=== PATIENT | male | born 1955 | race Asian ===

== ENCOUNTER 2018-06-10 22:35 | Inpatient (IN) | payer OTHER ==
[2018-06-10 23:15] LABS: ADD MAN DIFF? NO
[2018-06-10] MEDS: PIPER-TAZO 3.375 GM IV (PMX) 100 ML IVPB (23:16)
[2018-06-10 23:17] LABS: WHITE BLOOD COUNT 15.4 10^3/ul (4.8-10.8)
[2018-06-10 23:17] LABS: BASOPHIL # 0.1 10^3/ul (0.0-0.1); BASOPHILS % 0.4 % (0.0-2.0); EOSINOPHILS # 0.2 10^3/ul (0.0-0.5); EOSINOPHILS % 1.1 % (0.0-7.0); HEMATOCRIT 43.5 % (42.0-52.0); HEMOGLOBIN 13.2 g/dl (14.0-18.0); LYMPHOCYTES # 3.1 10^3/ul (0.8-2.9); LYMPHOCYTES % 20.1 % (15.0-51.0); MEAN CORPUSCULAR HEMOGLOBIN 18.7 pg (29.0-33.0); MEAN CORPUSCULAR HGB CONC 30.3 g/dl (32.0-37.0); MEAN CORPUSCULAR VOLUME 61.7 fl (82.0-101.0); MEAN PLATELET VOLUME 8.2 fl (7.4-10.4); MONOCYTE # 0.8 10^3/ul (0.3-0.9); MONOCYTES % 5.3 % (0.0-11.0); NEUTROPHIL # 11.1 10^3/ul (1.6-7.5); NEUTROPHILS % 72.4 % (39.0-77.0); PLATELET COUNT 575 10^3/UL (140-415); RED BLOOD COUNT 7.05 10^6/ul (4.70-6.10); RED CELL DISTRIBUTION WIDTH 20.3 % (11.5-14.5)
[2018-06-10] MEDS: SODIUM CHLORIDE 0.9% 1L BAG IV* (23:17)
[2018-06-10 23:36] LABS: ALANINE AMINOTRANSFERASE 6 IU/L (13-69); ALBUMIN 4.6 g/dl (3.3-4.9); ALKALINE PHOSPHATASE 129 IU/L (42-121); ANION GAP 16 (5-13); ASPARTATE AMINO TRANSFERASE 36 IU/L (15-46); BILIRUBIN,INDIRECT 0.1 mg/dl (0-1.1); BILIRUBIN,TOTAL 0.1 mg/dl (0.2-1.3); BLOOD UREA NITROGEN 22 mg/dl (7-20); CARBON DIOXIDE 24 mmol/L (21-31); CHLORIDE 93 mmol/L (97-110); CREATININE 0.68 mg/dl (0.61-1.24); Estimated GFR > 60 mL/min (>60); GLUCOSE 350 mg/dl (70-220); INR 0.89; PROTIME 12.2 Sec (11.9-14.9); SODIUM 133 mmol/L (135-144); TOTAL PROTEIN 10.3 g/dl (6.1-8.1)
[2018-06-10 23:37] LABS: PARTIAL THROMBOPLASTIN TIME 35.2 Sec (23.0-35.0)
[2018-06-10 23:46] LABS: TROPONIN-I < 0.012 ng/ml (0.000-0.120)
[2018-06-10 23:47] LABS: POTASSIUM 5.4 mmol/L (3.5-5.1)
[2018-06-11] MEDS: SOD CHLORIDE 0.9% 100 ML (02:06)
[2018-06-11] MEDS: IOHEXOL 300MG/ML 150 ML BTL (02:06)
[2018-06-11] MEDS ORDERED: ACETAMINOPHEN 325 MG TAB PO (02:30)
[2018-06-11] MEDS ORDERED: ONDANSETRON 4 MG INJ IV ×2 (02:30→05:00)
[2018-06-11 04:51] LABS: LACTIC ACID 2.5 mmol/L (0.5-2.0)
[2018-06-11] MEDS ORDERED: NACL 0.9% 3 ML SYG IV (05:00)
[2018-06-11] MEDS ORDERED: GLUCOSE GEL 15 GRAM TUBE PO ×2 (05:00)
[2018-06-11] MEDS ORDERED: GLUCAGON 1 MG INJ IM (05:00)
[2018-06-11] MEDS ORDERED: GLUCOSE GEL 15 GRAM TUBE BUCCAL (05:00)
[2018-06-11] MEDS ORDERED: DEXTROSE 50% 50 ML SYRINGE IV ×2 (05:00)
[2018-06-11] MEDS: SOD CHLORIDE 0.9% 1,000 ML IV ×2 (05:39→15:25)
[2018-06-11] MEDS: PIPER-TAZO 3.375 GM IV (PMX) 100 ML IVPB ×3 (06:10→18:37)
[2018-06-11 06:12] LABS: ADD MAN DIFF? NO
[2018-06-11 06:22] LABS: WHITE BLOOD COUNT 12.8 10^3/ul (4.8-10.8)
[2018-06-11 06:22] LABS: BASOPHIL # 0.1 10^3/ul (0.0-0.1); BASOPHILS % 0.5 % (0.0-2.0); EOSINOPHILS # 0.3 10^3/ul (0.0-0.5); EOSINOPHILS % 2.4 % (0.0-7.0); HEMOGLOBIN 10.9 g/dl (14.0-18.0); LYMPHOCYTES # 2.5 10^3/ul (0.8-2.9); LYMPHOCYTES % 19.8 % (15.0-51.0); MEAN CORPUSCULAR HGB CONC 30.3 g/dl (32.0-37.0); MEAN CORPUSCULAR VOLUME 62.6 fl (82.0-101.0); MEAN PLATELET VOLUME 8.2 fl (7.4-10.4); MONOCYTE # 1.1 10^3/ul (0.3-0.9); MONOCYTES % 8.8 % (0.0-11.0); NEUTROPHIL # 8.7 10^3/ul (1.6-7.5); NEUTROPHILS % 67.6 % (39.0-77.0); PLATELET COUNT 442 10^3/UL (140-415); RED BLOOD COUNT 5.75 10^6/ul (4.70-6.10); RED CELL DISTRIBUTION WIDTH 19.1 % (11.5-14.5)
[2018-06-11 06:46] LABS: ALANINE AMINOTRANSFERASE 7 IU/L (13-69); ALBUMIN 3.5 g/dl (3.3-4.9); ALBUMIN/GLOBULIN RATIO 0.83; ALKALINE PHOSPHATASE 93 IU/L (42-121); ANION GAP 13 (5-13); ASPARTATE AMINO TRANSFERASE 19 IU/L (15-46); BILIRUBIN,INDIRECT 0.2 mg/dl (0-1.1); BILIRUBIN,TOTAL 0.2 mg/dl (0.2-1.3); BLOOD UREA NITROGEN 16 mg/dl (7-20); CALCIUM 8.4 mg/dl (8.4-10.2); CARBON DIOXIDE 22 mmol/L (21-31); CHLORIDE 101 mmol/L (97-110); CREATININE 0.47 mg/dl (0.61-1.24); Estimated GFR > 60 mL/min (>60); GLUCOSE 195 mg/dl (70-220); MAGNESIUM 1.9 mg/dl (1.7-2.5); POTASSIUM 4.1 mmol/L (3.5-5.1); SODIUM 136 mmol/L (135-144); TOTAL PROTEIN 7.7 g/dl (6.1-8.1)
[2018-06-11] MEDS: INSULIN ASPART [NOVOLOG] 3 ML PEN SC ×6 (08:18→21:00)
[2018-06-11] MEDS: metFORMIN 500 MG TAB PO ×2 (09:00→18:37)
[2018-06-11 09:54] LABS: HEMOGLOBIN A1C 10.6 % (0-5.9)
[2018-06-11] MEDS: ACCU-CHEK XX ×3 (10:00→19:55)
[2018-06-11] MEDS: morphine 2 MG INJ IV (11:13)
[2018-06-11 13:01] LABS: HEPATITIS B SURFACE ANTIGEN NEGATIVE (NEGATIVE)
[2018-06-11 13:30] LABS: HEPATITIS C VIRAL ANTIBODY REACTIVE (NEGATIVE)
[2018-06-11 15:18] LABS: RAPID PLASMA REAGIN NONREACTIVE (NR)
[2018-06-11] MEDS ORDERED: PENDING SANTYL ORDER FOR WOUND CARE XX (20:00)
[2018-06-11] MEDS: INSULIN GLARGINE [LANTus] (100 UNITS/ML) SYG SC (21:40)
[2018-06-11] MEDS: ACETAMINOPHEN 325 MG TAB PO (21:51)
[2018-06-12] MEDS: PIPER-TAZO 3.375 GM IV (PMX) 100 ML IVPB ×5 (00:14→21:03)
[2018-06-12] MEDS: SOD CHLORIDE 0.9% 1,000 ML IV ×3 (00:15→21:03)
[2018-06-12] MEDS ORDERED: ACCU-CHEK XX (02:00)
[2018-06-12] MEDS: ACCU-CHEK XX ×7 (02:00→21:02)
[2018-06-12] MEDS: HYDROCODONE/APAP (5/325) TAB PO ×2 (05:16→13:31)
[2018-06-12 06:28] LABS: ADD MAN DIFF? NO
[2018-06-12 06:47] LABS: BASOPHIL # 0.1 10^3/ul (0.0-0.1); BASOPHILS % 0.5 % (0.0-2.0); EOSINOPHILS # 0.4 10^3/ul (0.0-0.5); EOSINOPHILS % 4.3 % (0.0-7.0); HEMATOCRIT 31.1 % (42.0-52.0); HEMOGLOBIN 9.5 g/dl (14.0-18.0); LYMPHOCYTES # 2.6 10^3/ul (0.8-2.9); LYMPHOCYTES % 27.8 % (15.0-51.0); MEAN CORPUSCULAR HEMOGLOBIN 19.3 pg (29.0-33.0); MEAN CORPUSCULAR HGB CONC 30.5 g/dl (32.0-37.0); MEAN CORPUSCULAR VOLUME 63.1 fl (82.0-101.0); MEAN PLATELET VOLUME 8.2 fl (7.4-10.4); MONOCYTE # 0.8 10^3/ul (0.3-0.9); MONOCYTES % 8.6 % (0.0-11.0); NEUTROPHIL # 5.4 10^3/ul (1.6-7.5); NEUTROPHILS % 57.9 % (39.0-77.0); PLATELET COUNT 379 10^3/UL (140-415); RED BLOOD COUNT 4.93 10^6/ul (4.70-6.10); RED CELL DISTRIBUTION WIDTH 18.6 % (11.5-14.5)
[2018-06-12 06:47] LABS: WHITE BLOOD COUNT 9.3 10^3/ul (4.8-10.8)
[2018-06-12 06:57] LABS: INR 0.96; PROTIME 12.9 Sec (11.9-14.9)
[2018-06-12 06:58] LABS: PARTIAL THROMBOPLASTIN TIME 37.1 Sec (23.0-35.0)
[2018-06-12 07:16] LABS: ALANINE AMINOTRANSFERASE 7 IU/L (13-69); ALBUMIN 3.2 g/dl (3.3-4.9); ALBUMIN/GLOBULIN RATIO 0.84; ALKALINE PHOSPHATASE 93 IU/L (42-121); ANION GAP 9 (5-13); ASPARTATE AMINO TRANSFERASE 14 IU/L (15-46); BLOOD UREA NITROGEN 10 mg/dl (7-20); CALCIUM 8.5 mg/dl (8.4-10.2); CARBON DIOXIDE 25 mmol/L (21-31); CHLORIDE 103 mmol/L (97-110); CREATININE 0.55 mg/dl (0.61-1.24); Estimated GFR > 60 mL/min (>60); GLUCOSE 239 mg/dl (70-220); SODIUM 137 mmol/L (135-144)
[2018-06-12 07:30] LABS: MAGNESIUM 1.7 mg/dl (1.7-2.5)
[2018-06-12] MEDS: INSULIN ASPART [NOVOLOG] 3 ML PEN SC ×5 (07:59→20:48)
[2018-06-12 08:25] LABS: ERYTHROCYTE SEDIMENTATION RATE 83 mm/Hr (0-20)
[2018-06-12] MEDS: metFORMIN 500 MG TAB PO (08:44)
[2018-06-12 11:14] LABS: IRON 19 ug/dl (35-150)
[2018-06-12] MEDS: NATEGLINIDE 60 MG TAB PO ×2 (11:20→18:41)
[2018-06-12 11:23] LABS: % IRON SATURATION 7 % SAT (22-52); TOTAL IRON BINDING CAPACITY 282 ug/dl (241-421)
[2018-06-12] MEDS: FAMOTIDINE 20 MG TAB PO ×2 (11:30→20:53)
[2018-06-12] MEDS: LEVOTHYROXINE 75 MCG TAB PO (13:25)
[2018-06-12] MEDS: TERBINAFINE 250 MG TAB PO ×2 (13:31→20:53)
[2018-06-12] MEDS: metFORMIN 850 MG TAB PO (18:39)
[2018-06-12] MEDS: INSULIN GLARGINE [LANTus] (100 UNITS/ML) SYG SC (21:01)
[2018-06-13] MEDS: PIPER-TAZO 3.375 GM IV (PMX) 100 ML IVPB ×3 (00:41→11:45)
[2018-06-13] MEDS: ACCU-CHEK XX ×8 (01:06→21:28)
[2018-06-13] MEDS: LEVOTHYROXINE 75 MCG TAB PO (05:14)
[2018-06-13] MEDS: SOD CHLORIDE 0.9% 1,000 ML IV ×2 (05:52→21:28)
[2018-06-13] MEDS: NATEGLINIDE 60 MG TAB PO ×3 (07:02→17:19)
[2018-06-13] MEDS: TERBINAFINE 250 MG TAB PO ×2 (08:48→20:58)
[2018-06-13] MEDS: FAMOTIDINE 20 MG TAB PO ×2 (08:48→20:59)
[2018-06-13] MEDS: metFORMIN 850 MG TAB PO ×2 (08:49→17:19)
[2018-06-13] MEDS: INSULIN ASPART [NOVOLOG] 3 ML PEN SC ×4 (09:03→21:26)
[2018-06-13] MEDS: SODIUM HYPOCHLORITE (1/40) 1 APPLIC BTL IRR ×2 (13:00→20:59)
[2018-06-13] MEDS: HYDROCODONE/APAP (5/325) TAB PO (15:04)
[2018-06-13] MEDS: CLINDAMYCIN 900 MG/D5W (PMX) 50 ML IVPB ×2 (15:07→22:00)
[2018-06-13] MEDS: ACETAMINOPHEN 325 MG TAB PO (20:59)
[2018-06-13] MEDS: NYSTATIN 30 GM POWDER BTL TOP (20:59)
[2018-06-13] MEDS: MEROPENEM 1 GM/50ML(PMX) 50 ML IVPB (21:00)
[2018-06-13] MEDS: INSULIN GLARGINE [LANTus] (100 UNITS/ML) SYG SC (21:25)
[2018-06-14] MEDS: ACCU-CHEK XX ×8 (01:45→21:12)
[2018-06-14] MEDS: SOD CHLORIDE 0.9% 1,000 ML IV ×3 (01:54→22:51)
[2018-06-14] MEDS: LEVOTHYROXINE 75 MCG TAB PO (05:15)
[2018-06-14] MEDS: HYDROCODONE/APAP (5/325) TAB PO ×3 (05:15→23:36)
[2018-06-14] MEDS: CLINDAMYCIN 900 MG/D5W (PMX) 50 ML IVPB (05:47)
[2018-06-14] MEDS: NATEGLINIDE 60 MG TAB PO ×3 (06:32→18:05)
[2018-06-14 07:39] LABS: IRON 38 ug/dl (35-150)
[2018-06-14 07:49] LABS: % IRON SATURATION 13 % SAT (22-52); TOTAL IRON BINDING CAPACITY 298 ug/dl (241-421)
[2018-06-14] MEDS: metFORMIN 850 MG TAB PO ×2 (07:55→18:05)
[2018-06-14 08:18] LABS: FERRITIN 77.5 ng/ml (11.1-264.0)
[2018-06-14] MEDS: FAMOTIDINE 20 MG TAB PO ×2 (08:22→20:35)
[2018-06-14] MEDS: NYSTATIN 30 GM POWDER BTL TOP ×2 (08:22→20:36)
[2018-06-14] MEDS: TERBINAFINE 250 MG TAB PO ×2 (08:22→20:35)
[2018-06-14] MEDS: INSULIN ASPART [NOVOLOG] 3 ML PEN SC ×4 (08:37→21:11)
[2018-06-14] MEDS: MEROPENEM 1 GM/50ML(PMX) 50 ML IVPB (09:00)
[2018-06-14] MEDS: SODIUM HYPOCHLORITE (1/40) 1 APPLIC BTL IRR ×2 (09:00→20:36)
[2018-06-14] MEDS: HEPARIN 5,000 UNIT/1 ML VIAL SC ×2 (14:30→21:12)
[2018-06-14] MEDS: CIPROFLOXACIN 500 MG TAB PO (18:05)
[2018-06-14] MEDS: DOXYCYCLINE 100 MG TAB PO (20:35)
[2018-06-14] MEDS: ACETAMINOPHEN 325 MG TAB PO (20:35)
[2018-06-14] MEDS: INSULIN GLARGINE [LANTus] (100 UNITS/ML) SYG SC (21:11)
[2018-06-15] MEDS: ACCU-CHEK XX ×8 (01:37→21:00)
[2018-06-15] MEDS: HYDROCODONE/APAP (5/325) TAB PO (04:58)
[2018-06-15] MEDS: LEVOTHYROXINE 75 MCG TAB PO (05:58)
[2018-06-15] MEDS: CIPROFLOXACIN 500 MG TAB PO ×2 (05:58→17:27)
[2018-06-15] MEDS: SOD CHLORIDE 0.9% 1,000 ML IV ×2 (08:31→17:30)
[2018-06-15] MEDS: DOXYCYCLINE 100 MG TAB PO ×2 (08:37→21:14)
[2018-06-15] MEDS: TERBINAFINE 250 MG TAB PO ×2 (08:37→21:14)
[2018-06-15] MEDS: INSULIN ASPART [NOVOLOG] 3 ML PEN SC ×4 (08:39→21:00)
[2018-06-15] MEDS: metFORMIN 850 MG TAB PO ×2 (08:39→17:26)
[2018-06-15] MEDS: NYSTATIN 30 GM POWDER BTL TOP ×2 (08:40→21:25)
[2018-06-15] MEDS: FAMOTIDINE 20 MG TAB PO ×2 (08:40→21:00)
[2018-06-15] MEDS: HEPARIN 5,000 UNIT/1 ML VIAL SC ×2 (08:40→21:00)
[2018-06-15] MEDS: NATEGLINIDE 60 MG TAB PO ×3 (09:16→17:26)
[2018-06-15 09:24] LABS: ADD MAN DIFF? NO
[2018-06-15 09:26] LABS: BASOPHILS % 0.5 % (0.0-2.0); EOSINOPHILS # 0.5 10^3/ul (0.0-0.5); EOSINOPHILS % 5.5 % (0.0-7.0); HEMATOCRIT 36.2 % (42.0-52.0); HEMOGLOBIN 10.8 g/dl (14.0-18.0); LYMPHOCYTES # 2.5 10^3/ul (0.8-2.9); LYMPHOCYTES % 28.6 % (15.0-51.0); MEAN CORPUSCULAR HEMOGLOBIN 18.8 pg (29.0-33.0); MEAN CORPUSCULAR HGB CONC 29.8 g/dl (32.0-37.0); MEAN CORPUSCULAR VOLUME 62.8 fl (82.0-101.0); MEAN PLATELET VOLUME 8.2 fl (7.4-10.4); MONOCYTE # 0.8 10^3/ul (0.3-0.9); MONOCYTES % 8.6 % (0.0-11.0); NEUTROPHIL # 4.9 10^3/ul (1.6-7.5); NEUTROPHILS % 56.1 % (39.0-77.0); PLATELET COUNT 393 10^3/UL (140-415); RED BLOOD COUNT 5.76 10^6/ul (4.70-6.10); RED CELL DISTRIBUTION WIDTH 18.2 % (11.5-14.5)
[2018-06-15 09:26] LABS: WHITE BLOOD COUNT 8.8 10^3/ul (4.8-10.8)
[2018-06-15 09:43] LABS: ANION GAP 16 (5-13); BLOOD UREA NITROGEN 13 mg/dl (7-20); CALCIUM 9.4 mg/dl (8.4-10.2); CARBON DIOXIDE 26 mmol/L (21-31); CHLORIDE 95 mmol/L (97-110); CREATININE 0.47 mg/dl (0.61-1.24); Estimated GFR > 60 mL/min (>60); GLUCOSE 157 mg/dl (70-220); SODIUM 137 mmol/L (135-144)
[2018-06-15 11:18] LABS: OCCULT BLOOD STOOL NEGATIVE (NEGATIVE)
[2018-06-15] MEDS: SODIUM HYPOCHLORITE (1/40) 1 APPLIC BTL IRR ×2 (12:10→21:25)
[2018-06-15] MEDS: INSULIN GLARGINE [LANTus] (100 UNITS/ML) SYG SC (21:17)
[2018-06-15] MEDS: ACETAMINOPHEN 325 MG TAB PO (23:52)
[2018-06-16] MEDS: ACCU-CHEK XX ×8 (01:24→21:00)
[2018-06-16] MEDS: SOD CHLORIDE 0.9% 1,000 ML IV ×2 (03:12→14:51)
[2018-06-16] MEDS: CIPROFLOXACIN 500 MG TAB PO ×2 (06:01→18:01)
[2018-06-16] MEDS: LEVOTHYROXINE 75 MCG TAB PO (06:01)
[2018-06-16] MEDS: HEPARIN 5,000 UNIT/1 ML VIAL SC ×2 (09:00→21:00)
[2018-06-16] MEDS: TERBINAFINE 250 MG TAB PO ×2 (09:18→21:31)
[2018-06-16] MEDS: ACETAMINOPHEN 325 MG TAB PO (09:18)
[2018-06-16] MEDS: DOXYCYCLINE 100 MG TAB PO ×2 (09:18→21:31)
[2018-06-16] MEDS: FAMOTIDINE 20 MG TAB PO ×2 (09:18→21:00)
[2018-06-16] MEDS: NATEGLINIDE 60 MG TAB PO ×3 (09:19→18:02)
[2018-06-16] MEDS: metFORMIN 850 MG TAB PO ×2 (09:19→18:02)
[2018-06-16] MEDS: INSULIN ASPART [NOVOLOG] 3 ML PEN SC ×4 (09:31→22:09)
[2018-06-16] MEDS: SODIUM HYPOCHLORITE (1/40) 1 APPLIC BTL IRR ×2 (13:06→21:30)
[2018-06-16] MEDS: NYSTATIN 30 GM POWDER BTL TOP ×2 (13:07→21:30)
[2018-06-16] MEDS: INSULIN GLARGINE [LANTus] (100 UNITS/ML) SYG SC (22:22)
[2018-06-17] MEDS: ACCU-CHEK XX ×8 (02:00→21:00)
[2018-06-17] MEDS: LEVOTHYROXINE 75 MCG TAB PO (06:00)
[2018-06-17] MEDS: CIPROFLOXACIN 500 MG TAB PO ×2 (06:00→17:51)
[2018-06-17] MEDS: NATEGLINIDE 60 MG TAB PO ×3 (07:30→17:51)
[2018-06-17] MEDS: INSULIN ASPART [NOVOLOG] 3 ML PEN SC ×4 (08:00→21:00)
[2018-06-17] MEDS: LIDOCAINE 1% (MPF) 5 ML VIAL SC (08:49)
[2018-06-17] MEDS: SOD CHLORIDE 0.9% 1,000 ML IV ×3 (08:50→20:51)
[2018-06-17] MEDS: TERBINAFINE 250 MG TAB PO ×2 (11:00→22:11)
[2018-06-17] MEDS: FAMOTIDINE 20 MG TAB PO ×2 (11:01→22:11)
[2018-06-17] MEDS: DOXYCYCLINE 100 MG TAB PO ×2 (11:01→22:11)
[2018-06-17] MEDS: metFORMIN 850 MG TAB PO ×2 (11:01→17:51)
[2018-06-17] MEDS: HYDROCODONE/APAP (5/325) TAB PO (11:02)
[2018-06-17] MEDS: HEPARIN 5,000 UNIT/1 ML VIAL SC ×2 (11:16→22:14)
[2018-06-17] MEDS: NYSTATIN 30 GM POWDER BTL TOP ×2 (17:54→22:12)
[2018-06-17] MEDS: SODIUM HYPOCHLORITE (1/40) 1 APPLIC BTL IRR ×3 (17:55→22:13)
[2018-06-17] MEDS: INSULIN GLARGINE [LANTus] (100 UNITS/ML) SYG SC (22:11)
[2018-06-17] MEDS: CLOTRIMAZOLE 1% 30 GM CR TOP (22:12)
[2018-06-18] MEDS: ACCU-CHEK XX ×8 (02:00→21:00)
[2018-06-18] MEDS: LEVOTHYROXINE 75 MCG TAB PO (06:22)
[2018-06-18] MEDS: CIPROFLOXACIN 500 MG TAB PO ×2 (06:22→18:05)
[2018-06-18] MEDS: HYDROCODONE/APAP (5/325) TAB PO ×2 (06:23→21:56)
[2018-06-18] MEDS: SOD CHLORIDE 0.9% 1,000 ML IV ×2 (06:51→16:28)
[2018-06-18] MEDS: metFORMIN 850 MG TAB PO ×2 (08:00→18:06)
[2018-06-18] MEDS: INSULIN ASPART [NOVOLOG] 3 ML PEN SC ×4 (08:00→22:05)
[2018-06-18] MEDS: NATEGLINIDE 60 MG TAB PO ×3 (08:30→18:05)
[2018-06-18] MEDS: FAMOTIDINE 20 MG TAB PO ×2 (08:56→21:00)
[2018-06-18] MEDS: SODIUM HYPOCHLORITE (1/40) 1 APPLIC BTL IRR ×2 (08:56→22:19)
[2018-06-18] MEDS: TERBINAFINE 250 MG TAB PO ×3 (08:56→21:57)
[2018-06-18] MEDS: NYSTATIN 30 GM POWDER BTL TOP ×2 (08:57→22:20)
[2018-06-18] MEDS: CLOTRIMAZOLE 1% 30 GM CR TOP ×2 (08:57→21:58)
[2018-06-18] MEDS: DOXYCYCLINE 100 MG TAB PO ×3 (08:57→21:57)
[2018-06-18] MEDS: HEPARIN 5,000 UNIT/1 ML VIAL SC ×2 (08:57→21:00)
[2018-06-18] MEDS: INSULIN GLARGINE [LANTus] (100 UNITS/ML) SYG SC (22:05)
[2018-06-19] MEDS: ACETAMINOPHEN 325 MG TAB PO (01:31)
[2018-06-19] MEDS: ACCU-CHEK XX ×8 (02:00→21:00)
[2018-06-19] MEDS: SOD CHLORIDE 0.9% 1,000 ML IV ×3 (02:51→22:51)
[2018-06-19] MEDS: LEVOTHYROXINE 75 MCG TAB PO (06:00)
[2018-06-19] MEDS: CIPROFLOXACIN 500 MG TAB PO ×2 (06:00→17:48)
[2018-06-19] MEDS: NATEGLINIDE 60 MG TAB PO ×3 (07:30→17:48)
[2018-06-19] MEDS: INSULIN ASPART [NOVOLOG] 3 ML PEN SC ×4 (08:00→21:12)
[2018-06-19] MEDS: metFORMIN 850 MG TAB PO ×2 (08:00→17:48)
[2018-06-19] MEDS: HEPARIN 5,000 UNIT/1 ML VIAL SC ×2 (09:00→21:00)
[2018-06-19] MEDS: NYSTATIN 30 GM POWDER BTL TOP ×2 (09:00→21:20)
[2018-06-19] MEDS: FAMOTIDINE 20 MG TAB PO ×2 (09:00→21:00)
[2018-06-19] MEDS: CLOTRIMAZOLE 1% 30 GM CR TOP ×2 (09:00→21:19)
[2018-06-19] MEDS: TERBINAFINE 250 MG TAB PO (14:00)
[2018-06-19] MEDS: DOXYCYCLINE 100 MG TAB PO ×2 (14:01→21:17)
[2018-06-19] MEDS: SODIUM HYPOCHLORITE (1/40) 1 APPLIC BTL IRR ×2 (16:00→21:16)
[2018-06-19] MEDS: INSULIN GLARGINE [LANTus] (100 UNITS/ML) SYG SC (21:13)
[2018-06-20] MEDS: ACCU-CHEK XX ×8 (02:00→21:00)
[2018-06-20] MEDS: HYDROCODONE/APAP (5/325) TAB PO (05:59)
[2018-06-20] MEDS: CIPROFLOXACIN 500 MG TAB PO ×2 (06:00→17:32)
[2018-06-20] MEDS: LEVOTHYROXINE 75 MCG TAB PO (06:00)
[2018-06-20] MEDS: NATEGLINIDE 60 MG TAB PO ×3 (07:30→17:32)
[2018-06-20] MEDS: metFORMIN 850 MG TAB PO ×2 (11:35→17:33)
[2018-06-20] MEDS: INSULIN ASPART [NOVOLOG] 3 ML PEN SC ×4 (11:35→21:00)
[2018-06-20] MEDS: SOD CHLORIDE 0.9% 1,000 ML IV ×2 (11:36→18:02)
[2018-06-20] MEDS: HEPARIN 5,000 UNIT/1 ML VIAL SC ×2 (12:13→21:00)
[2018-06-20] MEDS: FAMOTIDINE 20 MG TAB PO ×2 (12:18→21:37)
[2018-06-20] MEDS: DOXYCYCLINE 100 MG TAB PO ×2 (12:18→21:37)
[2018-06-20] MEDS: NYSTATIN 30 GM POWDER BTL TOP ×2 (12:25→21:00)
[2018-06-20] MEDS: SODIUM HYPOCHLORITE (1/40) 1 APPLIC BTL IRR ×2 (12:25→21:00)
[2018-06-20] MEDS: CLOTRIMAZOLE 1% 30 GM CR TOP ×2 (12:25→21:00)
[2018-06-20] MEDS: ACETAMINOPHEN 325 MG TAB PO (15:30)
[2018-06-20] MEDS: INSULIN GLARGINE [LANTus] (100 UNITS/ML) SYG SC (21:39)
[2018-06-21] MEDS: ACCU-CHEK XX ×8 (01:05→20:43)
[2018-06-21] MEDS: SOD CHLORIDE 0.9% 1,000 ML IV ×2 (04:51→14:51)
[2018-06-21] MEDS: LEVOTHYROXINE 75 MCG TAB PO (06:00)
[2018-06-21] MEDS: CIPROFLOXACIN 500 MG TAB PO ×2 (06:17→18:00)
[2018-06-21] MEDS: HYDROCODONE/APAP (5/325) TAB PO (06:17)
[2018-06-21] MEDS: NATEGLINIDE 60 MG TAB PO ×3 (07:30→17:35)
[2018-06-21] MEDS: metFORMIN 850 MG TAB PO ×2 (08:00→18:05)
[2018-06-21] MEDS: INSULIN ASPART [NOVOLOG] 3 ML PEN SC ×4 (08:00→20:27)
[2018-06-21] MEDS: NYSTATIN 30 GM POWDER BTL TOP (09:00)
[2018-06-21] MEDS: CLOTRIMAZOLE 1% 30 GM CR TOP (09:00)
[2018-06-21] MEDS: FAMOTIDINE 20 MG TAB PO ×2 (09:00→21:00)
[2018-06-21] MEDS: DOXYCYCLINE 100 MG TAB PO ×2 (09:00→21:55)
[2018-06-21] MEDS: SODIUM HYPOCHLORITE (1/40) 1 APPLIC BTL IRR (09:00)
[2018-06-21] MEDS: HEPARIN 5,000 UNIT/1 ML VIAL SC ×2 (09:00→21:00)
[2018-06-21] MEDS: INSULIN GLARGINE [LANTus] (100 UNITS/ML) SYG SC (20:27)
[2018-06-21] MEDS: ACETAMINOPHEN 325 MG TAB PO (20:29)
[2018-06-22] MEDS: SODIUM HYPOCHLORITE (1/40) 1 APPLIC BTL IRR ×2 (00:10→09:00)
[2018-06-22] MEDS: CLOTRIMAZOLE 1% 30 GM CR TOP ×2 (00:11→09:00)
[2018-06-22] MEDS: NYSTATIN 30 GM POWDER BTL TOP ×2 (00:11→09:00)
[2018-06-22] MEDS: SOD CHLORIDE 0.9% 1,000 ML IV ×3 (00:51→20:51)
[2018-06-22] MEDS: ACCU-CHEK XX ×8 (02:17→21:00)
[2018-06-22] MEDS: LEVOTHYROXINE 75 MCG TAB PO (06:00)
[2018-06-22] MEDS: NATEGLINIDE 60 MG TAB PO ×3 (07:30→17:09)
[2018-06-22] MEDS: INSULIN ASPART [NOVOLOG] 3 ML PEN SC ×4 (08:00→21:01)
[2018-06-22] MEDS: FAMOTIDINE 20 MG TAB PO ×2 (09:00→22:08)
[2018-06-22] MEDS: HEPARIN 5,000 UNIT/1 ML VIAL SC ×2 (09:00→22:06)
[2018-06-22] MEDS: DOXYCYCLINE 100 MG TAB PO ×2 (11:34→22:05)
[2018-06-22] MEDS: metFORMIN 850 MG TAB PO ×2 (11:34→17:09)
[2018-06-22] MEDS: CIPROFLOXACIN 500 MG TAB PO ×2 (11:34→17:09)
[2018-06-22] MEDS: ACETAMINOPHEN 325 MG TAB PO (15:41)
[2018-06-22] MEDS: HYDROCODONE/APAP (5/325) TAB PO (20:55)
[2018-06-22] MEDS: INSULIN GLARGINE [LANTus] (100 UNITS/ML) SYG SC (21:00)
[2018-06-23] MEDS: ACCU-CHEK XX ×8 (02:00→21:12)
[2018-06-23] MEDS: CLOTRIMAZOLE 1% 30 GM CR TOP ×2 (02:13→11:53)
[2018-06-23] MEDS: NYSTATIN 30 GM POWDER BTL TOP ×2 (02:13→11:53)
[2018-06-23] MEDS: SODIUM HYPOCHLORITE (1/40) 1 APPLIC BTL IRR ×2 (02:14→11:53)
[2018-06-23] MEDS: CIPROFLOXACIN 500 MG TAB PO ×2 (06:39→18:39)
[2018-06-23] MEDS: LEVOTHYROXINE 75 MCG TAB PO (06:39)
[2018-06-23] MEDS: SOD CHLORIDE 0.9% 1,000 ML IV ×2 (06:51→15:42)
[2018-06-23] MEDS: NATEGLINIDE 60 MG TAB PO ×3 (07:30→18:39)
[2018-06-23] MEDS: metFORMIN 850 MG TAB PO ×2 (08:00→18:39)
[2018-06-23] MEDS: INSULIN ASPART [NOVOLOG] 3 ML PEN SC ×4 (08:00→21:04)
[2018-06-23] MEDS: ACETAMINOPHEN 325 MG TAB PO (10:40)
[2018-06-23] MEDS: DOXYCYCLINE 100 MG TAB PO ×2 (11:50→21:07)
[2018-06-23] MEDS: HEPARIN 5,000 UNIT/1 ML VIAL SC ×2 (11:51→21:00)
[2018-06-23] MEDS: FAMOTIDINE 20 MG TAB PO ×2 (11:52→21:00)
[2018-06-23] MEDS: INSULIN GLARGINE [LANTus] (100 UNITS/ML) SYG SC (21:03)
[2018-06-24] MEDS: NYSTATIN 30 GM POWDER BTL TOP ×4 (01:22→21:00)
[2018-06-24] MEDS: CLOTRIMAZOLE 1% 30 GM CR TOP ×3 (01:22→21:00)
[2018-06-24] MEDS: SODIUM HYPOCHLORITE (1/40) 1 APPLIC BTL IRR ×4 (01:22→21:00)
[2018-06-24] MEDS: ACCU-CHEK XX ×8 (02:00→21:00)
[2018-06-24] MEDS: SOD CHLORIDE 0.9% 1,000 ML IV ×3 (02:51→22:51)
[2018-06-24] MEDS: CIPROFLOXACIN 500 MG TAB PO ×3 (06:00→18:29)
[2018-06-24] MEDS: LEVOTHYROXINE 75 MCG TAB PO ×2 (06:00→12:13)
[2018-06-24] MEDS: NATEGLINIDE 60 MG TAB PO ×3 (07:30→18:27)
[2018-06-24] MEDS: INSULIN ASPART [NOVOLOG] 3 ML PEN SC ×4 (08:00→21:00)
[2018-06-24] MEDS: metFORMIN 850 MG TAB PO ×3 (08:00→18:29)
[2018-06-24] MEDS: HEPARIN 5,000 UNIT/1 ML VIAL SC ×2 (09:00→21:00)
[2018-06-24] MEDS: FAMOTIDINE 20 MG TAB PO ×3 (09:00→21:00)
[2018-06-24] MEDS: DOXYCYCLINE 100 MG TAB PO ×3 (09:00→23:45)
[2018-06-24] MEDS: HYDROCODONE/APAP (5/325) TAB PO (12:09)
[2018-06-24] MEDS: ACETAMINOPHEN 325 MG TAB PO (16:30)
[2018-06-24] MEDS: INSULIN GLARGINE [LANTus] (100 UNITS/ML) SYG SC (22:31)
[2018-06-25] MEDS: ACCU-CHEK XX ×8 (02:00→21:00)
[2018-06-25] MEDS: CIPROFLOXACIN 500 MG TAB PO ×2 (06:00→17:20)
[2018-06-25] MEDS: LEVOTHYROXINE 75 MCG TAB PO (06:00)
[2018-06-25] MEDS: SOD CHLORIDE 0.9% 1,000 ML IV ×2 (08:51→17:51)
[2018-06-25] MEDS: HEPARIN 5,000 UNIT/1 ML VIAL SC ×2 (09:00→21:00)
[2018-06-25] MEDS: NATEGLINIDE 60 MG TAB PO ×3 (10:31→17:20)
[2018-06-25] MEDS: metFORMIN 850 MG TAB PO ×2 (11:26→17:20)
[2018-06-25] MEDS: INSULIN ASPART [NOVOLOG] 3 ML PEN SC ×4 (11:26→22:28)
[2018-06-25] MEDS: DOXYCYCLINE 100 MG TAB PO ×2 (11:27→22:22)
[2018-06-25] MEDS: FAMOTIDINE 20 MG TAB PO ×2 (11:27→22:22)
[2018-06-25] MEDS: NYSTATIN 30 GM POWDER BTL TOP ×2 (11:28→21:00)
[2018-06-25] MEDS: CLOTRIMAZOLE 1% 30 GM CR TOP ×2 (11:28→21:00)
[2018-06-25] MEDS: SODIUM HYPOCHLORITE (1/40) 1 APPLIC BTL IRR ×2 (11:28→21:00)
[2018-06-25] MEDS: ACETAMINOPHEN 325 MG TAB PO ×2 (12:15→22:22)
[2018-06-25] MEDS: INSULIN GLARGINE [LANTus] (100 UNITS/ML) SYG SC (22:24)
[2018-06-26] MEDS: ACCU-CHEK XX ×8 (02:00→21:00)
[2018-06-26] MEDS: SOD CHLORIDE 0.9% 1,000 ML IV ×2 (04:51→14:51)
[2018-06-26] MEDS: LEVOTHYROXINE 75 MCG TAB PO (06:00)
[2018-06-26] MEDS: CIPROFLOXACIN 500 MG TAB PO ×2 (06:00→17:35)
[2018-06-26] MEDS: NATEGLINIDE 60 MG TAB PO ×3 (07:30→17:35)
[2018-06-26] MEDS: metFORMIN 850 MG TAB PO ×2 (08:00→17:35)
[2018-06-26] MEDS: INSULIN ASPART [NOVOLOG] 3 ML PEN SC ×4 (08:00→21:58)
[2018-06-26] MEDS: HEPARIN 5,000 UNIT/1 ML VIAL SC ×3 (09:00→21:58)
[2018-06-26] MEDS: DOXYCYCLINE 100 MG TAB PO ×2 (09:00→21:55)
[2018-06-26] MEDS: CLOTRIMAZOLE 1% 30 GM CR TOP ×2 (09:00→22:15)
[2018-06-26] MEDS: NYSTATIN 30 GM POWDER BTL TOP ×2 (09:00→22:17)
[2018-06-26] MEDS: FAMOTIDINE 20 MG TAB PO ×3 (09:00→21:55)
[2018-06-26] MEDS: SODIUM HYPOCHLORITE (1/40) 1 APPLIC BTL IRR ×2 (12:37→22:13)
[2018-06-26] MEDS: INSULIN GLARGINE [LANTus] (100 UNITS/ML) SYG SC (21:59)
[2018-06-27] MEDS: SOD CHLORIDE 0.9% 1,000 ML IV ×3 (00:51→20:51)
[2018-06-27] MEDS: ACCU-CHEK XX ×8 (01:20→21:00)
[2018-06-27] MEDS: CIPROFLOXACIN 500 MG TAB PO ×2 (05:57→17:19)
[2018-06-27] MEDS: LEVOTHYROXINE 75 MCG TAB PO (06:00)
[2018-06-27] MEDS: NATEGLINIDE 60 MG TAB PO ×3 (07:30→17:19)
[2018-06-27] MEDS: INSULIN ASPART [NOVOLOG] 3 ML PEN SC ×4 (08:00→21:00)
[2018-06-27] MEDS: FAMOTIDINE 20 MG TAB PO ×2 (09:00→21:00)
[2018-06-27] MEDS: DOXYCYCLINE 100 MG TAB PO ×2 (12:04→21:04)
[2018-06-27] MEDS: metFORMIN 850 MG TAB PO ×2 (12:04→17:19)
[2018-06-27] MEDS: HEPARIN 5,000 UNIT/1 ML VIAL SC ×2 (12:05→21:00)
[2018-06-27] MEDS: NYSTATIN 30 GM POWDER BTL TOP ×2 (12:11→21:05)
[2018-06-27] MEDS: SODIUM HYPOCHLORITE (1/40) 1 APPLIC BTL IRR ×2 (12:11→21:06)
[2018-06-27] MEDS: CLOTRIMAZOLE 1% 30 GM CR TOP ×2 (12:14→21:05)
[2018-06-27] MEDS: ACETAMINOPHEN 325 MG TAB PO (15:07)
[2018-06-27] MEDS: INSULIN GLARGINE [LANTus] (100 UNITS/ML) SYG SC (21:08)
[2018-06-28] MEDS: HYDROCORTISONE 1% 28.35 GM OINT TOP ×3 (01:30→21:00)
[2018-06-28] MEDS: ACCU-CHEK XX ×8 (02:00→21:00)
[2018-06-28] MEDS: LEVOTHYROXINE 75 MCG TAB PO (06:00)
[2018-06-28] MEDS: CIPROFLOXACIN 500 MG TAB PO (06:28)
[2018-06-28] MEDS: SOD CHLORIDE 0.9% 1,000 ML IV ×2 (06:43→15:04)
[2018-06-28] MEDS: INSULIN ASPART [NOVOLOG] 3 ML PEN SC ×4 (08:00→20:47)
[2018-06-28] MEDS: HEPARIN 5,000 UNIT/1 ML VIAL SC ×2 (09:00→21:00)
[2018-06-28] MEDS: FAMOTIDINE 20 MG TAB PO ×3 (09:00→21:00)
[2018-06-28] MEDS: SODIUM HYPOCHLORITE (1/40) 1 APPLIC BTL IRR ×2 (09:00→20:43)
[2018-06-28] MEDS: CLOTRIMAZOLE 1% 30 GM CR TOP ×2 (09:00→21:00)
[2018-06-28] MEDS: NYSTATIN 30 GM POWDER BTL TOP ×2 (09:00→21:00)
[2018-06-28] MEDS: NATEGLINIDE 60 MG TAB PO ×3 (11:30→18:28)
[2018-06-28] MEDS: DOXYCYCLINE 100 MG TAB PO (12:40)
[2018-06-28] MEDS: metFORMIN 850 MG TAB PO ×2 (12:41→18:28)
[2018-06-28] MEDS: AMOXICILLIN/CLAV 875 MG TAB PO (20:45)
[2018-06-28] MEDS: HYDROCODONE/APAP (5/325) TAB PO (20:46)
[2018-06-28] MEDS: INSULIN GLARGINE [LANTus] (100 UNITS/ML) SYG SC (20:47)
[2018-06-28] MEDS ORDERED: morphine LIQ (10 MG/5 ML) CUP PO (23:45)
[2018-06-29] MEDS: ACCU-CHEK XX ×8 (02:00→21:00)
[2018-06-29] MEDS: SOD CHLORIDE 0.9% 1,000 ML IV ×2 (02:24→12:25)
[2018-06-29] MEDS: LEVOTHYROXINE 75 MCG TAB PO (06:00)
[2018-06-29] MEDS: HYDROCODONE/APAP (5/325) TAB PO (06:56)
[2018-06-29] MEDS: NATEGLINIDE 60 MG TAB PO ×3 (07:30→17:35)
[2018-06-29] MEDS: INSULIN ASPART [NOVOLOG] 3 ML PEN SC ×4 (08:00→20:59)
[2018-06-29] MEDS: HYDROCORTISONE 1% 28.35 GM OINT TOP ×3 (08:48→21:12)
[2018-06-29] MEDS: FAMOTIDINE 20 MG TAB PO ×2 (09:00→21:00)
[2018-06-29] MEDS: NYSTATIN 30 GM POWDER BTL TOP ×2 (09:00→21:13)
[2018-06-29] MEDS: SODIUM HYPOCHLORITE (1/40) 1 APPLIC BTL IRR ×3 (09:00→21:13)
[2018-06-29] MEDS: CLOTRIMAZOLE 1% 30 GM CR TOP ×3 (09:00→21:13)
[2018-06-29] MEDS: metFORMIN 850 MG TAB PO ×2 (10:51→17:55)
[2018-06-29] MEDS: AMOXICILLIN/CLAV 875 MG TAB PO ×2 (10:51→20:55)
[2018-06-29] MEDS: HEPARIN 5,000 UNIT/1 ML VIAL SC ×2 (10:55→20:55)
[2018-06-29] MEDS: ACETAMINOPHEN 325 MG TAB PO (19:48)
[2018-06-29] MEDS: INSULIN GLARGINE [LANTus] (100 UNITS/ML) SYG SC (21:00)
[2018-06-30] MEDS: LEVOTHYROXINE 75 MCG TAB PO (05:22)
[2018-06-30] MEDS: NATEGLINIDE 60 MG TAB PO ×4 (07:30→15:51)
[2018-06-30] MEDS: ACCU-CHEK XX ×7 (07:30→21:00)
[2018-06-30] MEDS: INSULIN ASPART [NOVOLOG] 3 ML PEN SC ×4 (08:00→15:54)
[2018-06-30] MEDS: metFORMIN 850 MG TAB PO ×3 (08:00→15:51)
[2018-06-30] MEDS: FAMOTIDINE 20 MG TAB PO ×2 (08:31→21:00)
[2018-06-30] MEDS: AMOXICILLIN/CLAV 875 MG TAB PO ×3 (08:31→15:53)
[2018-06-30] MEDS: SODIUM HYPOCHLORITE (1/40) 1 APPLIC BTL IRR ×2 (08:31→21:00)
[2018-06-30] MEDS: NYSTATIN 30 GM POWDER BTL TOP (08:32)
[2018-06-30] MEDS: HEPARIN 5,000 UNIT/1 ML VIAL SC ×2 (08:32→21:00)
[2018-06-30] MEDS: CLOTRIMAZOLE 1% 30 GM CR TOP (08:32)
[2018-06-30] MEDS: KETOCONAZOLE 2% 15 GM CR TOP (12:30)
[2018-06-30] MEDS: HYDROCODONE/APAP (5/325) TAB PO (15:52)
[2018-07-01] MEDS: INSULIN ASPART [NOVOLOG] 3 ML PEN SC ×5 (00:46→21:42)
[2018-07-01] MEDS: INSULIN GLARGINE [LANTus] (100 UNITS/ML) SYG SC ×2 (00:47→21:40)
[2018-07-01] MEDS: KETOCONAZOLE 2% 15 GM CR TOP ×3 (00:49→21:00)
[2018-07-01] MEDS: ACETAMINOPHEN 325 MG TAB PO ×2 (00:49→17:30)
[2018-07-01] MEDS: FAMOTIDINE 20 MG TAB PO ×3 (00:49→21:00)
[2018-07-01] MEDS: AMOXICILLIN/CLAV 875 MG TAB PO ×3 (00:49→21:42)
[2018-07-01] MEDS: CLOTRIMAZOLE 1% 30 GM CR TOP ×3 (00:59→21:00)
[2018-07-01] MEDS: NYSTATIN 30 GM POWDER BTL TOP ×3 (00:59→21:00)
[2018-07-01] MEDS: LEVOTHYROXINE 75 MCG TAB PO (06:00)
[2018-07-01] MEDS: ACCU-CHEK XX ×7 (10:03→21:00)
[2018-07-01] MEDS: metFORMIN 850 MG TAB PO ×2 (10:05→17:29)
[2018-07-01] MEDS: NATEGLINIDE 60 MG TAB PO ×3 (10:05→17:28)
[2018-07-01] MEDS: HEPARIN 5,000 UNIT/1 ML VIAL SC ×2 (10:09→21:00)
[2018-07-01] MEDS: SODIUM HYPOCHLORITE (1/40) 1 APPLIC BTL IRR ×2 (15:38→21:00)
[2018-07-02] MEDS: LEVOTHYROXINE 75 MCG TAB PO (05:44)
[2018-07-02] MEDS: ACCU-CHEK XX ×7 (07:30→22:36)
[2018-07-02] MEDS: NATEGLINIDE 60 MG TAB PO ×3 (07:30→17:33)
[2018-07-02] MEDS: metFORMIN 850 MG TAB PO ×2 (08:00→17:33)
[2018-07-02] MEDS: INSULIN ASPART [NOVOLOG] 3 ML PEN SC ×4 (08:00→22:33)
[2018-07-02] MEDS: CLOTRIMAZOLE 1% 30 GM CR TOP ×2 (09:00→20:51)
[2018-07-02] MEDS: AMOXICILLIN/CLAV 875 MG TAB PO ×2 (09:00→20:47)
[2018-07-02] MEDS: HEPARIN 5,000 UNIT/1 ML VIAL SC ×2 (09:00→20:50)
[2018-07-02] MEDS: KETOCONAZOLE 2% 15 GM CR TOP ×2 (09:00→20:51)
[2018-07-02] MEDS: SODIUM HYPOCHLORITE (1/40) 1 APPLIC BTL IRR ×2 (09:00→20:51)
[2018-07-02] MEDS: FAMOTIDINE 20 MG TAB PO ×2 (09:00→20:50)
[2018-07-02] MEDS: NYSTATIN 30 GM POWDER BTL TOP ×2 (09:00→20:51)
[2018-07-02] MEDS: HYDROCORTISONE 0.5% 28.35 GM OINT TOP ×2 (15:00→20:51)
[2018-07-02] MEDS: ACETAMINOPHEN 325 MG TAB PO (19:45)
[2018-07-02] MEDS: INSULIN GLARGINE [LANTus] (100 UNITS/ML) SYG SC (22:33)
[2018-07-03] MEDS: LEVOTHYROXINE 75 MCG TAB PO (05:08)
[2018-07-03] MEDS: NATEGLINIDE 60 MG TAB PO ×3 (07:30→17:35)
[2018-07-03] MEDS: ACCU-CHEK XX ×7 (07:30→21:00)
[2018-07-03] MEDS: CLOTRIMAZOLE 1% 30 GM CR TOP ×2 (09:00→21:24)
[2018-07-03] MEDS: HEPARIN 5,000 UNIT/1 ML VIAL SC ×2 (09:00→21:00)
[2018-07-03] MEDS: KETOCONAZOLE 2% 15 GM CR TOP ×2 (09:00→21:24)
[2018-07-03] MEDS: NYSTATIN 30 GM POWDER BTL TOP ×2 (09:00→21:24)
[2018-07-03] MEDS: SODIUM HYPOCHLORITE (1/40) 1 APPLIC BTL IRR ×2 (09:00→21:23)
[2018-07-03] MEDS: HYDROCORTISONE 0.5% 28.35 GM OINT TOP ×2 (09:00→21:26)
[2018-07-03] MEDS: FAMOTIDINE 20 MG TAB PO ×2 (09:00→21:00)
[2018-07-03] MEDS: ACETAMINOPHEN 325 MG TAB PO (11:33)
[2018-07-03] MEDS: metFORMIN 850 MG TAB PO ×2 (11:34→18:45)
[2018-07-03] MEDS: AMOXICILLIN/CLAV 875 MG TAB PO ×2 (11:34→21:19)
[2018-07-03] MEDS: INSULIN ASPART [NOVOLOG] 3 ML PEN SC ×4 (11:36→21:00)
[2018-07-03] MEDS: INSULIN GLARGINE [LANTus] (100 UNITS/ML) SYG SC (20:04)
[2018-07-04] MEDS: ACETAMINOPHEN 325 MG TAB PO ×2 (00:51→18:00)
[2018-07-04] MEDS: LEVOTHYROXINE 75 MCG TAB PO (06:00)
[2018-07-04] MEDS: ACCU-CHEK XX ×7 (07:30→23:00)
[2018-07-04] MEDS: NATEGLINIDE 60 MG TAB PO ×4 (07:30→18:00)
[2018-07-04] MEDS: metFORMIN 850 MG TAB PO ×3 (08:00→18:00)
[2018-07-04] MEDS: INSULIN ASPART [NOVOLOG] 3 ML PEN SC ×5 (08:00→23:15)
[2018-07-04] MEDS: HEPARIN 5,000 UNIT/1 ML VIAL SC ×2 (08:28→23:00)
[2018-07-04] MEDS: AMOXICILLIN/CLAV 875 MG TAB PO ×3 (08:28→23:12)
[2018-07-04] MEDS: HYDROCORTISONE 0.5% 28.35 GM OINT TOP ×2 (08:28→23:00)
[2018-07-04] MEDS: FAMOTIDINE 20 MG TAB PO ×2 (08:28→23:13)
[2018-07-04] MEDS: SODIUM HYPOCHLORITE (1/40) 1 APPLIC BTL IRR ×2 (08:28→23:00)
[2018-07-04] MEDS: CLOTRIMAZOLE 1% 30 GM CR TOP ×2 (08:29→23:00)
[2018-07-04] MEDS: NYSTATIN 30 GM POWDER BTL TOP ×2 (08:29→23:00)
[2018-07-04] MEDS: KETOCONAZOLE 2% 15 GM CR TOP ×2 (08:29→23:00)
[2018-07-04] MEDS: INSULIN GLARGINE [LANTus] (100 UNITS/ML) SYG SC (23:16)
[2018-07-05] MEDS: LEVOTHYROXINE 75 MCG TAB PO (05:47)
[2018-07-05] MEDS: ACCU-CHEK XX ×7 (07:30→21:14)
[2018-07-05] MEDS: NATEGLINIDE 60 MG TAB PO ×4 (07:30→16:52)
[2018-07-05] MEDS: metFORMIN 850 MG TAB PO ×3 (07:58→18:21)
[2018-07-05] MEDS: INSULIN ASPART [NOVOLOG] 3 ML PEN SC ×5 (07:59→23:49)
[2018-07-05] MEDS: CLOTRIMAZOLE 1% 30 GM CR TOP ×3 (08:07→21:00)
[2018-07-05] MEDS: HYDROCORTISONE 0.5% 28.35 GM OINT TOP ×2 (08:07→21:32)
[2018-07-05] MEDS: SODIUM HYPOCHLORITE (1/40) 1 APPLIC BTL IRR ×2 (08:07→21:00)
[2018-07-05] MEDS: HEPARIN 5,000 UNIT/1 ML VIAL SC ×2 (08:07→21:00)
[2018-07-05] MEDS: AMOXICILLIN/CLAV 875 MG TAB PO ×3 (08:07→21:26)
[2018-07-05] MEDS: FAMOTIDINE 20 MG TAB PO ×2 (08:07→21:00)
[2018-07-05] MEDS: NYSTATIN 30 GM POWDER BTL TOP ×2 (08:08→21:00)
[2018-07-05] MEDS: KETOCONAZOLE 2% 15 GM CR TOP ×2 (08:08→21:00)
[2018-07-05] MEDS: ACETAMINOPHEN 325 MG TAB PO (14:40)
[2018-07-05] MEDS: INSULIN GLARGINE [LANTus] (100 UNITS/ML) SYG SC (20:00)
[2018-07-05] MEDS: HYDROCODONE/APAP (5/325) TAB PO (23:36)
[2018-07-06] MEDS: LEVOTHYROXINE 75 MCG TAB PO (06:00)
[2018-07-06] MEDS: NATEGLINIDE 60 MG TAB PO ×4 (07:30→17:48)
[2018-07-06] MEDS: ACCU-CHEK XX ×7 (07:30→22:44)
[2018-07-06] MEDS: INSULIN ASPART [NOVOLOG] 3 ML PEN SC ×4 (08:00→22:42)
[2018-07-06] MEDS: metFORMIN 850 MG TAB PO ×3 (08:00→17:48)
[2018-07-06] MEDS: HEPARIN 5,000 UNIT/1 ML VIAL SC ×2 (09:00→21:00)
[2018-07-06] MEDS: HYDROCORTISONE 0.5% 28.35 GM OINT TOP ×2 (09:00→22:44)
[2018-07-06] MEDS: AMOXICILLIN/CLAV 875 MG TAB PO ×2 (09:44→22:41)
[2018-07-06] MEDS: FAMOTIDINE 20 MG TAB PO ×2 (09:44→22:41)
[2018-07-06] MEDS: NYSTATIN 30 GM POWDER BTL TOP ×2 (09:46→22:42)
[2018-07-06] MEDS: CLOTRIMAZOLE 1% 30 GM CR TOP ×2 (09:46→22:43)
[2018-07-06] MEDS: SODIUM HYPOCHLORITE (1/40) 1 APPLIC BTL IRR ×2 (09:47→22:42)
[2018-07-06] MEDS: KETOCONAZOLE 2% 15 GM CR TOP ×2 (09:47→22:44)
[2018-07-06] MEDS: HYDROCODONE/APAP (5/325) TAB PO (15:52)
[2018-07-06] MEDS: INSULIN GLARGINE [LANTus] (100 UNITS/ML) SYG SC (22:41)
[2018-07-07] MEDS: LEVOTHYROXINE 75 MCG TAB PO (06:00)
[2018-07-07] MEDS: ACCU-CHEK XX ×7 (07:30→21:44)
[2018-07-07] MEDS: NATEGLINIDE 60 MG TAB PO ×3 (07:30→17:39)
[2018-07-07] MEDS: INSULIN ASPART [NOVOLOG] 3 ML PEN SC ×4 (08:00→21:00)
[2018-07-07] MEDS: metFORMIN 850 MG TAB PO ×3 (08:00→17:39)
[2018-07-07] MEDS: CLOTRIMAZOLE 1% 30 GM CR TOP ×2 (09:00→21:00)
[2018-07-07] MEDS: NYSTATIN 30 GM POWDER BTL TOP ×3 (09:00→21:00)
[2018-07-07] MEDS: HYDROCORTISONE 0.5% 28.35 GM OINT TOP ×2 (09:00→21:00)
[2018-07-07] MEDS: FAMOTIDINE 20 MG TAB PO ×2 (09:00→21:00)
[2018-07-07] MEDS: SODIUM HYPOCHLORITE (1/40) 1 APPLIC BTL IRR ×3 (09:00→21:37)
[2018-07-07] MEDS: AMOXICILLIN/CLAV 875 MG TAB PO ×3 (09:00→21:37)
[2018-07-07] MEDS: HEPARIN 5,000 UNIT/1 ML VIAL SC ×2 (09:00→21:00)
[2018-07-07] MEDS: KETOCONAZOLE 2% 15 GM CR TOP ×2 (09:00→21:00)
[2018-07-07] MEDS: ACETAMINOPHEN 325 MG TAB PO ×2 (15:15→21:42)
[2018-07-07] MEDS: INSULIN GLARGINE [LANTus] (100 UNITS/ML) SYG SC (21:39)
[2018-07-08] MEDS: LEVOTHYROXINE 75 MCG TAB PO (05:41)
[2018-07-08] MEDS: ACCU-CHEK XX ×5 (10:00→17:51)
[2018-07-08] MEDS: FAMOTIDINE 20 MG TAB PO (12:33)
[2018-07-08] MEDS: NATEGLINIDE 60 MG TAB PO ×3 (12:34→17:35)
[2018-07-08] MEDS: AMOXICILLIN/CLAV 875 MG TAB PO (12:34)
[2018-07-08] MEDS: metFORMIN 850 MG TAB PO ×2 (12:34→17:51)
[2018-07-08] MEDS: INSULIN ASPART [NOVOLOG] 3 ML PEN SC ×2 (12:35→17:48)
[2018-07-08] MEDS: HEPARIN 5,000 UNIT/1 ML VIAL SC (12:37)
[2018-07-08] MEDS: CLOTRIMAZOLE 1% 30 GM CR TOP (12:41)
[2018-07-08] MEDS: NYSTATIN 30 GM POWDER BTL TOP (12:41)
[2018-07-08] MEDS: SODIUM HYPOCHLORITE (1/40) 1 APPLIC BTL IRR (12:41)
[2018-07-08] MEDS: KETOCONAZOLE 2% 15 GM CR TOP (12:42)
[2018-07-08] MEDS: HYDROCORTISONE 0.5% 28.35 GM OINT TOP (12:42)
[2018-07-08] MEDS: HYDROCODONE/APAP (5/325) TAB PO (18:47)
== END 2018-07-08 20:00 | DRG 871 ==
LOC: E/R 22:35 → 2NE 06-15 06:19 → PP2 06-22 12:40 → TEL 06-11 02:19
PROC: 0T2BX0Z Change Drainage Device in Bladder, External Approach (ICD-10-PCS; principal; 2018-06-16)
DX: A41.9 Sepsis, unspecified organism (principal); L89.313 Pressure ulcer of right buttock, stage 3; L89.154 Pressure ulcer of sacral region, stage 4; G82.20 Paraplegia, unspecified; M86.8X8 Other osteomyelitis, other site; E11.65 Type 2 diabetes mellitus with hyperglycemia; N31.9 Neuromuscular dysfunction of bladder, unspecified; B35.1 Tinea unguium; I10 Essential (primary) hypertension; D64.9 Anemia, unspecified; B18.2 Chronic viral hepatitis C; E03.9 Hypothyroidism, unspecified; L21.9 Seborrheic dermatitis, unspecified; R33.9 Retention of urine, unspecified; N35.919 Unspecified urethral stricture, male, unspecified site; B96.20 Unspecified Escherichia coli [E. coli] as the cause of diseases classified elsewhere; B96.4 Proteus (mirabilis) (morganii) as the cause of diseases classified elsewhere; B96.1 Klebsiella pneumoniae [K. pneumoniae] as the cause of diseases classified elsewhere; B95.2 Enterococcus as the cause of diseases classified elsewhere; Z79.4 Long term (current) use of insulin; Z59.0 Homelessness; Z99.3 Dependence on wheelchair; Z87.891 Personal history of nicotine dependence; Z91.19 Patient's noncompliance with other medical treatment and regimen
CPT/HCPCS: 36415; 71045; 74178; 80048; 80053; 82270; 82728; 82962; 83036; 83540; 83605; 83735; 84443; 84484; 85025; 85610; 85651; 85730; 86592; 86803; 87040; 87070; 87086; 87340; 93005; 96365; 99291-25